=== PATIENT | male | born 1955 | race Caucasian/White ===

== ENCOUNTER → 2016-11-12 | Outpatient (CLI) | payer BC ==
--- NOTE | 2016-11-13 05:04 | REP ---
Clinical: Lateral pain. Technique: AP, lateral, bilateral oblique views of the left foot. Findings: Mild to moderate age-related degenerative changes involve the interphalangeal joints with subchondral sclerosis, joint space narrowing, and scattered marginal spurring. Mild to moderate age-related degenerative changes are also identified at the tarsometatarsal joints. No acute fracture dislocation. Surrounding soft tissues are unremarkable. Impression: Mild to moderate age-related degenerative changes. Signed by Margarito Godfrey MD 11/13/2016 04:56 A
== END ==
LOC: M WUC 08:31
PROVIDERS: ATTEND Physician Assistant
DX: M19.072 Primary osteoarthritis, left ankle and foot (principal)

== ENCOUNTER → 2018-10-28 | Outpatient (CLI) | payer BC ==
[2018-10-28 08:45] LABS: PROSTATIC SPECIFIC AG MONITOR 1.38 NG/ML (< 4.00)
== END ==
LOC: M LAB 07:42
PROVIDERS: ATTEND Family Medicine
DX: E29.1 Testicular hypofunction (principal)

== ENCOUNTER → 2019-04-20 | Outpatient (CLI) | payer BC ==
[2019-04-20 08:11] LABS: HEMATOCRIT 52.7 % (42.0-52.0); HEMOGLOBIN 17.3 g/dl (13.5-17.5); MEAN CORPUSCULAR HEMOGLOBIN 30.1 pg (27.0-33.0); MEAN CORPUSCULAR HGB CONC 32.8 g/dl (32.0-36.5); MEAN CORPUSCULAR VOLUME 91.7 fl (80.0-96.0); PLATELET COUNT, AUTOMATED 193 10^3/uL (150-450); RED BLOOD COUNT 5.75 10^6/uL (4.30-6.10); WHITE BLOOD COUNT 6.4 10^3/uL (4.0-10.0)
[2019-04-20 08:46] LABS: ALBUMIN 3.6 GM/DL (3.2-5.2); ALT/SGPT 24 U/L (12-78); BILIRUBIN,TOTAL 0.9 MG/DL (0.2-1.0); BLOOD UREA NITROGEN 18 MG/DL (7-18); CALCIUM LEVEL 8.8 MG/DL (8.8-10.2); CARBON DIOXIDE LEVEL 30 MEQ/L (21-32); CHLORIDE LEVEL 108 MEQ/L (98-107); CHOLESTEROL LEVEL 163 MG/DL (<200); CHOLESTEROL RISK RATIO 3.326 (<5); CREATININE FOR GFR 1.15 MG/DL (0.70-1.30); GLOMERULAR FILTRATION RATE > 60.0 (>49); GLUCOSE, FASTING 83 MG/DL (70-100); HDL CHOLESTEROL 49 MG/DL (>40); LDL CHOLESTEROL 98 MG/DL (<100); NON-HDL-C 114 MG/DL; POTASSIUM SERUM 4.5 MEQ/L (3.5-5.1); PROSTATIC SPECIFIC AG MONITOR 1.43 NG/ML (< 4.00); SODIUM LEVEL 142 MEQ/L (136-145); TOTAL PROTEIN 6.9 GM/DL (6.4-8.2); TRIGLYCERIDES LEVEL 78 MG/DL (<150)
[2019-04-20 10:09] LABS: TOTAL 25(OH) VITAMIN D 36.8 NG/ML (30.0-100.0)
[2019-04-20 10:11] LABS: HEMOGLOBIN A1c 5.3 %
== END ==
LOC: M LAB 07:16
PROVIDERS: ATTEND Family Medicine
DX: I10 Essential (primary) hypertension (principal); N40.0 Benign prostatic hyperplasia without lower urinary tract symptoms; E03.9 Hypothyroidism, unspecified

== ENCOUNTER → 2019-08-06 | Outpatient (REF) | payer BC ==
[2019-08-06 14:05] LABS: INFLUENZA A AMPLIFICATION POSITIVE (NEGATIVE); INFLUENZA B AMPLIFICATION NEGATIVE (NEGATIVE)
== END ==
LOC: M LAB REF 12:24
PROVIDERS: ATTEND Physician Assistant Medical
DX: R50.9 Fever, unspecified (principal)

== ENCOUNTER → 2019-10-15 | Outpatient (CLI) | payer BC, MEDICARE ==
[2019-10-15 07:26] LABS: HEMATOCRIT 46.7 % (42.0-52.0); HEMOGLOBIN 16.1 g/dl (13.5-17.5); MEAN CORPUSCULAR HEMOGLOBIN 30.8 pg (27.0-33.0); MEAN CORPUSCULAR HGB CONC 34.5 g/dl (32.0-36.5); MEAN CORPUSCULAR VOLUME 89.5 fl (80.0-96.0); PLATELET COUNT, AUTOMATED 182 10^3/uL (150-450); RED BLOOD COUNT 5.22 10^6/uL (4.30-6.10); WHITE BLOOD COUNT 6.7 10^3/uL (4.0-10.0)
[2019-10-15 07:50] LABS: ALBUMIN 3.7 GM/DL (3.2-5.2); ALT/SGPT 31 U/L (12-78); BILIRUBIN,TOTAL 0.5 MG/DL (0.2-1.0); BLOOD UREA NITROGEN 24 MG/DL (7-18); CALCIUM LEVEL 8.6 MG/DL (8.8-10.2); CARBON DIOXIDE LEVEL 30 MEQ/L (21-32); CHLORIDE LEVEL 107 MEQ/L (98-107); CHOLESTEROL LEVEL 171 MG/DL (<200); CHOLESTEROL RISK RATIO 4.275 (<5); CREATININE FOR GFR 1.12 MG/DL (0.70-1.30); GLOMERULAR FILTRATION RATE > 60.0 (>49); GLUCOSE, FASTING 85 MG/DL (70-100); HDL CHOLESTEROL 40 MG/DL (>40); LDL CHOLESTEROL 105 MG/DL (<100); NON-HDL-C 131 MG/DL; POTASSIUM SERUM 4.1 MEQ/L (3.5-5.1); PROSTATIC SPECIFIC AG MONITOR 1.05 NG/ML (< 4.00); SODIUM LEVEL 141 MEQ/L (136-145); TOTAL PROTEIN 7.3 GM/DL (6.4-8.2); TRIGLYCERIDES LEVEL 128 MG/DL (<150)
[2019-10-15 10:35] LABS: HEMOGLOBIN A1c 5.7 %
[2019-10-17 11:11] LABS: TESTOSTERONE 212 NG/DL (241-827)
== END ==
LOC: M LAB 06:45
PROVIDERS: ATTEND Family Medicine
DX: R53.83 Other fatigue (principal); I10 Essential (primary) hypertension; E03.9 Hypothyroidism, unspecified

== ENCOUNTER → 2020-04-28 | Outpatient (CLI) | payer BC, MEDICARE ==
[2020-04-28 09:18] LABS: HEMATOCRIT 48.5 % (42.0-52.0); HEMOGLOBIN 15.9 g/dl (13.5-17.5); MEAN CORPUSCULAR HEMOGLOBIN 29.4 pg (27.0-33.0); MEAN CORPUSCULAR HGB CONC 32.8 g/dl (32.0-36.5); MEAN CORPUSCULAR VOLUME 89.6 fl (80.0-96.0); PLATELET COUNT, AUTOMATED 184 10^3/uL (150-450); RED BLOOD COUNT 5.41 10^6/uL (4.30-6.10); WHITE BLOOD COUNT 7.2 10^3/uL (4.0-10.0)
[2020-04-28 09:38] LABS: ALBUMIN 3.5 GM/DL (3.2-5.2); ALT/SGPT 21 U/L (12-78); BILIRUBIN,TOTAL 0.8 MG/DL (0.2-1.0); BLOOD UREA NITROGEN 18 MG/DL (7-18); CALCIUM LEVEL 8.5 MG/DL (8.8-10.2); CARBON DIOXIDE LEVEL 30 MEQ/L (21-32); CHLORIDE LEVEL 108 MEQ/L (98-107); CHOLESTEROL LEVEL 155 MG/DL (<200); CHOLESTEROL RISK RATIO 3.444 (<5); CREATININE FOR GFR 1.22 MG/DL (0.70-1.30); GLOMERULAR FILTRATION RATE > 60.0 (>49); GLUCOSE, FASTING 92 MG/DL (70-100); HDL CHOLESTEROL 45 MG/DL (>40); LDL CHOLESTEROL 91 MG/DL (<100); NON-HDL-C 110 MG/DL; POTASSIUM SERUM 4.1 MEQ/L (3.5-5.1); SODIUM LEVEL 142 MEQ/L (136-145); TOTAL PROTEIN 6.9 GM/DL (6.4-8.2); TRIGLYCERIDES LEVEL 97 MG/DL (<150)
[2020-04-28 10:33] LABS: CHLAMYDIA DNA AMPLIFICATION NEGATIVE (NEGATIVE); GC DNA AMPLIFICATION NEGATIVE (NEGATIVE)
[2020-04-30 10:55] LABS: TESTOSTERONE 524 NG/DL (241-827)
[2020-04-30 11:35] LABS: HIV 1&2 SCREEN CENTAUR NEGATIVE (NEGATIVE)
== END ==
LOC: M LAB 08:27
PROVIDERS: ATTEND Family Medicine
DX: D64.9 Anemia, unspecified (principal); R53.83 Other fatigue; E03.9 Hypothyroidism, unspecified

== ENCOUNTER → 2020-10-29 | Outpatient (REF) | payer BC, MEDICARE | LOC: M LAB REF 11:47 | PROVIDERS: ATTEND Physician Assistant | DX: J02.9 Acute pharyngitis, unspecified (principal) ==

== ENCOUNTER → 2020-11-03 | Outpatient (CLI) | payer BC, MEDICARE ==
[2020-11-03 08:39] LABS: HEMOGLOBIN 15.4 g/dl (13.5-17.5); MEAN CORPUSCULAR HEMOGLOBIN 30.4 pg (27.0-33.0); MEAN CORPUSCULAR HGB CONC 33.5 g/dl (32.0-36.5); MEAN CORPUSCULAR VOLUME 90.7 fl (80.0-96.0); PLATELET COUNT, AUTOMATED 230 10^3/uL (150-450); RED BLOOD COUNT 5.07 10^6/uL (4.30-6.10); WHITE BLOOD COUNT 9.4 10^3/uL (4.0-10.0)
[2020-11-03 09:10] LABS: ALBUMIN 3.6 GM/DL (3.2-5.2); ALT/SGPT 28 U/L (12-78); BILIRUBIN,TOTAL 0.4 MG/DL (0.2-1.0); BLOOD UREA NITROGEN 18 MG/DL (7-18); CALCIUM LEVEL 8.8 MG/DL (8.8-10.2); CARBON DIOXIDE LEVEL 31 MEQ/L (21-32); CHLORIDE LEVEL 107 MEQ/L (98-107); CHOLESTEROL LEVEL 150 MG/DL (<200); CREATININE FOR GFR 0.96 MG/DL (0.70-1.30); GLOMERULAR FILTRATION RATE > 60.0 (>49); GLUCOSE, FASTING 88 MG/DL (70-100); HDL CHOLESTEROL 50 MG/DL (>40); LDL CHOLESTEROL 89 MG/DL (<100); NON-HDL-C 100 MG/DL; POTASSIUM SERUM 4.2 MEQ/L (3.5-5.1); PROSTATIC SPECIFIC AG MONITOR 1.24 NG/ML (< 4.00); SODIUM LEVEL 141 MEQ/L (136-145); THYROID STIMULATING HORMONE 0.905 uIU/ML (0.358-3.740); TRIGLYCERIDES LEVEL 55 MG/DL (<150)
[2020-11-03 09:57] LABS: HEMOGLOBIN A1c 5.1 %
[2020-11-05 12:15] LABS: TESTOSTERONE 460 NG/DL (241-827)
== END ==
LOC: M LAB 08:17
PROVIDERS: ATTEND Family Medicine
DX: I10 Essential (primary) hypertension (principal); E03.9 Hypothyroidism, unspecified; R53.83 Other fatigue; Z79.899 Other long term (current) drug therapy

== ENCOUNTER → 2021-03-19 | Outpatient (CLI) | payer MEDICARE ==
--- NOTE | 2021-03-19 11:16 | REP ---
INDICATION: [place]. COMPARISON: 05/30/2016 TECHNIQUE: Five views FINDINGS: Since the last examination prominent marginal osteophytosis has developed on the left at L2-3 and increased slightly on the left at L4-5. Vertebral body height and alignment is again seen to be within normal limits. There is advanced disc space narrowing seen at L4-5 and L5-S1 increased from the prior exam. Degenerative facet joint changes are again seen bilaterally at every level and again particularly at L4-5 and L5-S1. IMPRESSION: Chronic changes as described above. <Electronically signed by Tommy Poe > 03/19/21 [id number]
--- NOTE | 2021-03-19 11:22 | REP ---
INDICATION: COPD. COMPARISON: Multiple the latest 01/17/2016 TECHNIQUE: PA and lateral FINDINGS: The superior mediastinal structures are midline. The cardiac silhouette is unremarkable in size, shape, and position. The diaphragmatic surfaces of the lungs are regular, and the costophrenic angles are clear. The pulmonary english are clear. The imaged osseous structures are intact. IMPRESSION: There is no acute cardiopulmonary disease. <Electronically signed by Tommy Poe > 03/19/21 [id number]
== END ==
LOC: M RAD 08:49
PROVIDERS: ATTEND Family Medicine
DX: J44.9 Chronic obstructive pulmonary disease, unspecified (principal); M54.30 Sciatica, unspecified side; M25.78 Osteophyte, vertebrae; M48.061 Spinal stenosis, lumbar region without neurogenic claudication; M48.07 Spinal stenosis, lumbosacral region; M46.96 Unspecified inflammatory spondylopathy, lumbar region; M46.97 Unspecified inflammatory spondylopathy, lumbosacral region

== ENCOUNTER → 2021-05-20 | Outpatient (CLI) | payer MEDICARE ==
[2021-05-20 09:36] LABS: HEMOGLOBIN 16.1 g/dl (13.5-17.5); MEAN CORPUSCULAR HEMOGLOBIN 29.8 pg (27.0-33.0); MEAN CORPUSCULAR HGB CONC 32.9 g/dl (32.0-36.5); MEAN CORPUSCULAR VOLUME 90.7 fl (80.0-96.0); PLATELET COUNT, AUTOMATED 206 10^3/uL (150-450); WHITE BLOOD COUNT 7.5 10^3/uL (4.0-10.0)
[2021-05-20 10:12] LABS: ALBUMIN 3.9 GM/DL (3.2-5.2); ALT/SGPT 27 U/L (12-78); BILIRUBIN,TOTAL 0.8 MG/DL (0.2-1.0); BLOOD UREA NITROGEN 19 MG/DL (7-18); CALCIUM LEVEL 9.1 MG/DL (8.8-10.2); CARBON DIOXIDE LEVEL 31 MEQ/L (21-32); CHLORIDE LEVEL 107 MEQ/L (98-107); CHOLESTEROL LEVEL 177 MG/DL (<200); CHOLESTEROL RISK RATIO 4.317 (<5); GLOMERULAR FILTRATION RATE > 60.0 (>49); GLUCOSE, FASTING 95 MG/DL (70-100); HDL CHOLESTEROL 41 MG/DL (>40); LDL CHOLESTEROL 109 MG/DL (<100); NON-HDL-C 136 MG/DL; POTASSIUM SERUM 4.2 MEQ/L (3.5-5.1); PROSTATIC SPECIFIC AG MONITOR 1.71 NG/ML (< 4.00); SODIUM LEVEL 142 MEQ/L (136-145); TOTAL PROTEIN 7.1 GM/DL (6.4-8.2); TRIGLYCERIDES LEVEL 137 MG/DL (<150)
[2021-05-20 10:18] LABS: TESTOSTERONE 580 NG/DL (241-827)
[2021-05-20 10:45] LABS: HEMOGLOBIN A1c 5.1 %
== END ==
LOC: M LAB 08:43
PROVIDERS: ATTEND Family Medicine
DX: R53.83 Other fatigue (principal); I10 Essential (primary) hypertension; E03.9 Hypothyroidism, unspecified; Z79.899 Other long term (current) drug therapy; R97.20 Elevated prostate specific antigen [PSA]

== ENCOUNTER → 2022-01-20 | Outpatient (CLI) | payer MEDICARE ==
[2022-01-20 08:07] LABS: HEMATOCRIT 45.4 % (42.0-52.0); HEMOGLOBIN 15.6 g/dl (13.5-17.5); MEAN CORPUSCULAR HEMOGLOBIN 30.2 pg (27.0-33.0); MEAN CORPUSCULAR HGB CONC 34.4 g/dl (32.0-36.5); PLATELET COUNT, AUTOMATED 184 10^3/uL (150-450); RED BLOOD COUNT 5.16 10^6/uL (4.30-6.10); WHITE BLOOD COUNT 6.5 10^3/uL (4.0-10.0)
[2022-01-20 08:43] LABS: ALBUMIN 3.8 GM/DL (3.2-5.2); ALT/SGPT 22 U/L (12-78); BILIRUBIN,TOTAL 0.8 MG/DL (0.2-1.0); BLOOD UREA NITROGEN 16 MG/DL (7-18); CALCIUM LEVEL 9.1 MG/DL (8.8-10.2); CARBON DIOXIDE LEVEL 27 MEQ/L (21-32); CHLORIDE LEVEL 107 MEQ/L (98-107); CHOLESTEROL LEVEL 176 MG/DL (<200); CREATININE FOR GFR 1.13 MG/DL (0.70-1.30); GLOMERULAR FILTRATION RATE > 60.0 (>49); GLUCOSE, FASTING 96 MG/DL (70-100); HDL CHOLESTEROL 40 MG/DL (>40); LDL CHOLESTEROL 110 MG/DL (<100); NON-HDL-C 136 MG/DL; POTASSIUM SERUM 3.9 MEQ/L (3.5-5.1); PROSTATIC SPECIFIC AG MONITOR 1.24 NG/ML (< 4.00); SODIUM LEVEL 138 MEQ/L (136-145); TRIGLYCERIDES LEVEL 129 MG/DL (<150)
[2022-01-20 09:14] LABS: HEMOGLOBIN A1c 5.3 %
[2022-01-20 10:14] LABS: TESTOSTERONE 502 NG/DL (241-827)
== END ==
LOC: M RAD 07:10
PROVIDERS: ATTEND Family Medicine
DX: R53.83 Other fatigue (principal); I10 Essential (primary) hypertension; E03.9 Hypothyroidism, unspecified; Z79.899 Other long term (current) drug therapy; R97.20 Elevated prostate specific antigen [PSA]

== ENCOUNTER → 2022-04-30 | Outpatient (CLI) | payer MEDICARE ==
[2022-04-30 07:30] LABS: HEMOGLOBIN 15.5 g/dl (13.5-17.5); MEAN CORPUSCULAR HEMOGLOBIN 29.9 pg (27.0-33.0); MEAN CORPUSCULAR VOLUME 90.7 fl (80.0-96.0); PLATELET COUNT, AUTOMATED 186 10^3/uL (150-450); RED BLOOD COUNT 5.18 10^6/uL (4.30-6.10); WHITE BLOOD COUNT 6.5 10^3/uL (4.0-10.0)
[2022-04-30 07:59] LABS: CHLORIDE LEVEL 105 MMOL/L (98-107); POTASSIUM SERUM 4.3 MMOL/L (3.5-5.1); SODIUM LEVEL 141 MMOL/L (136-145)
[2022-04-30 08:01] LABS: ALBUMIN 3.8 G/DL (3.2-5.2); CARBON DIOXIDE LEVEL 31 MMOL/L (20-31)
[2022-04-30 08:05] LABS: BLOOD UREA NITROGEN 20 MG/DL (9-23); CALCIUM LEVEL 8.7 MG/DL (8.3-10.6); GLUCOSE, FASTING 99 MG/DL (74-106); TRIGLYCERIDES LEVEL 104 MG/DL (<150)
[2022-04-30 08:06] LABS: ALKALINE PHOSPHATASE 66 U/L (46-116)
[2022-04-30 08:07] LABS: CHOLESTEROL LEVEL 133 MG/DL (<200); CHOLESTEROL RISK RATIO 3.86 (<5); CREATININE FOR GFR 1.04 MG/DL (0.70-1.30); GLOMERULAR FILTRATION RATE > 60.0 (>49); HDL CHOLESTEROL 34.4 MG/DL (>40); LDL CHOLESTEROL 77.8 MG/DL (<100); NON-HDL-C 99 MG/DL
[2022-04-30 08:08] LABS: ALT/SGPT 16 U/L (7.0-40); AST/SGOT 22 U/L (<34); BILIRUBIN,TOTAL 0.8 MG/DL (0.3-1.2); TOTAL PROTEIN 6.7 G/DL (5.7-8.2)
[2022-04-30 08:09] LABS: THYROID STIMULATING HORMONE 3.979 uIU/ML (0.55-4.78)
[2022-04-30 08:10] LABS: TESTOSTERONE 773 NG/DL (241-827); TOTAL 25(OH) VITAMIN D 67.5 NG/ML (20.0-100.0)
[2022-04-30 09:01] LABS: HEMOGLOBIN A1c 4.8 % (4.0-6.0)
== END ==
LOC: M LAB 07:06
PROVIDERS: ATTEND Family Medicine
DX: I10 Essential (primary) hypertension (principal); E03.9 Hypothyroidism, unspecified; R53.83 Other fatigue; Z79.899 Other long term (current) drug therapy
CPT/HCPCS: 36415; 80053; 80061; 82306; 83036; 84403; 84443; 85027; G0103

== ENCOUNTER 2023-05-01 13:34 | Inpatient (IN) | payer MEDICARE ==
[~2023-05-01] VITALS: Ht 182.9 cm; Wt 86.6 kg
[~2023-05-01 13:34] MED LIST: ACYC1TAB PO; HYDR-3713; IBUP80TA; NEBI5TAB PO; PRAV40TA2 PO; TADA5TAB PO
[2023-05-01] MEDS ORDERED: IPRATROPIUM 0.5MG/ALBUTEROL 2.5MG INH SOL UD 3ML (DUONEB) NEB ONE (16:20)
[2023-05-01 16:47] LABS: BASO % 0.2 % (0.0-1.0); EOS % 0.1 % (0.0-3.0); HEMATOCRIT 45.1 % (42.0-52.0); HEMOGLOBIN 14.9 g/dl (13.5-17.5); LYMPH # 0.7 10^3/uL (1.5-5.0); LYMPH % 3.7 % (24.0-44.0); MEAN CORPUSCULAR HEMOGLOBIN 29.5 pg (27.0-33.0); MEAN CORPUSCULAR VOLUME 89.3 fl (80.0-96.0); MONO # 0.4 10^3/uL (0.0-0.8); MONO % 1.9 % (2.0-8.0); NEUTROPHILS # 17.8 10^3/uL (1.5-8.5); NEUTROPHILS % 93.8 % (36.0-66.0); PLATELET COUNT, AUTOMATED 343 10^3/uL (150-450); RED BLOOD COUNT 5.05 10^6/uL (4.30-6.10)
[2023-05-01 16:53] LABS: VENOUS BASE EXCESS 2.6 (-2.0-2.0); VENOUS HCO3 30.4 MMOL/L (23.0-27.0); VENOUS O2 SATURATION 58.7 % (60.0-80.0); VENOUS PARTIAL PRESSURE CO2 59.8 mmHg (38.0-50.0); VENOUS PH 7.324 UNITS (7.330-7.430); VENOUS STANDARD HCO3 25.6 MMOL/L; VENOUS TOTAL CO2 32.2 MMOL/L (24.0-28.0)
[2023-05-01] MEDS ORDERED: cefTRIAXone SOD 1 GM in D5W MINI-BAG PLUS 50 ML IV ONE (17:05)
[2023-05-01] MEDS ORDERED: AZITHROMYCIN 250MG TABLET PO ONE (17:05)
[2023-05-01 17:18] LABS: ALBUMIN 3.4 G/DL (3.2-5.2); ALKALINE PHOSPHATASE 76 U/L (46-116); ALT/SGPT 11 U/L (7.0-40); AST/SGOT 16 U/L (<34); BILIRUBIN,DIRECT 0.5 MG/DL (<0.4); BILIRUBIN,TOTAL 1.2 MG/DL (0.3-1.2); BLOOD UREA NITROGEN 17 MG/DL (9-23); CALCIUM LEVEL 9.2 MG/DL (8.3-10.6); CARBON DIOXIDE LEVEL 29 MMOL/L (20-31); CHLORIDE LEVEL 101 MMOL/L (98-107); CREATININE FOR GFR 0.94 MG/DL (0.70-1.30); GLOMERULAR FILTRATION RATE > 60.0 (>49); GLUCOSE, FASTING 111 MG/DL (74-106); POTASSIUM SERUM 4.1 MMOL/L (3.5-5.1); SODIUM LEVEL 139 MMOL/L (136-145); TOTAL PROTEIN 7.4 G/DL (5.7-8.2)
[2023-05-01 17:21] LABS: THYROID STIMULATING HORMONE 0.676 uIU/ML (0.55-4.78)
[2023-05-01] MEDS ORDERED: NEBIVOLOL 5 MG TAB (BYSTOLIC) PO STA (17:36)
[2023-05-01] MEDS ORDERED: AZIT-12 (17:41)
[2023-05-01] MEDS ORDERED: HYDR5LIQ2 (17:41)
[2023-05-01] MEDS ORDERED: ACETAMINOPHEN TAB 650MG DOSE (2X325MG) PO PRN (17:55)
[2023-05-01] MEDS ORDERED: MAALOX 30 ML SUSP *UDC PO PRN (17:55)
[2023-05-01] MEDS ORDERED: NS 1,000 ML IV SCH (17:55)
[2023-05-01] MEDS ORDERED: MOM 30ML SUSPENSION UDC PO PRN (17:55)
[2023-05-01] MEDS ORDERED: IPRATROPIUM 0.5MG/ALBUTEROL 2.5MG INH SOL UD 3ML (DUONEB) NEB PRN (18:10)
[2023-05-01] MEDS ORDERED: HOME MED LIST COMPLETE! XX SCH (18:50)
[2023-05-01] MEDS: IPRATROPIUM 0.5MG/ALBUTEROL 2.5MG INH SOL UD 3ML (DUONEB) NEB SCH (20:48)
[2023-05-01] MEDS: DOCUSATE SODIUM 100MG CAPSULE PO SCH (21:12)
[2023-05-01] MEDS: guaiFENesin ER TABLET 600 MG TAB PO SCH (21:12)
[2023-05-01] MEDS: LevoFLOXacin IV 750 MG in IV 1 EA IV SCH (21:12)
[2023-05-01 23:00] VITALS: BP 140/79; TEMP 97.6; O2SAT 92
[2023-05-02] VITALS (7 sets, daily range): BP systolic 140–151; BP diastolic 76–81; TEMP 97.1–98.5; O2SAT 92–96
[2023-05-02] MEDS: IPRATROPIUM 0.5MG/ALBUTEROL 2.5MG INH SOL UD 3ML (DUONEB) NEB SCH ×4 (01:36→20:26)
[2023-05-02 05:51] LABS: BLOOD UREA NITROGEN 17 MG/DL (9-23); CALCIUM LEVEL 8.3 MG/DL (8.3-10.6); CARBON DIOXIDE LEVEL 26 MMOL/L (20-31); CHLORIDE LEVEL 107 MMOL/L (98-107); CREATININE FOR GFR 0.91 MG/DL (0.70-1.30); GLOMERULAR FILTRATION RATE > 60.0 (>49); GLUCOSE, FASTING 101 MG/DL (74-106); MAGNESIUM LEVEL 1.9 MG/DL (1.8-2.4); POTASSIUM SERUM 4.1 MMOL/L (3.5-5.1); SODIUM LEVEL 142 MMOL/L (136-145)
[2023-05-02 05:57] LABS: BASO % 0.2 % (0.0-1.0); EOS # 0.1 10^3/uL (0.0-0.5); EOS % 0.5 % (0.0-3.0); HEMATOCRIT 39.2 % (42.0-52.0); LYMPH # 1.1 10^3/uL (1.5-5.0); LYMPH % 9.9 % (24.0-44.0); MEAN CORPUSCULAR HEMOGLOBIN 29.3 pg (27.0-33.0); MEAN CORPUSCULAR HGB CONC 33.2 g/dl (32.0-36.5); MEAN CORPUSCULAR VOLUME 88.5 fl (80.0-96.0); MONO # 0.7 10^3/uL (0.0-0.8); NEUTROPHILS % 82.8 % (36.0-66.0); PLATELET COUNT, AUTOMATED 288 10^3/uL (150-450); RED BLOOD COUNT 4.43 10^6/uL (4.30-6.10); WHITE BLOOD COUNT 10.9 10^3/uL (4.0-10.0)
[2023-05-02] MEDS: ENOXAPARIN 40MG/0.4ML SYRINGE (J1650 PER 10MG) SC SCH (09:00)
[2023-05-02] MEDS: DOCUSATE SODIUM 100MG CAPSULE PO SCH ×2 (09:00→20:09)
[2023-05-02] MEDS: guaiFENesin ER TABLET 600 MG TAB PO SCH ×2 (09:00→20:09)
[2023-05-02] MEDS: NEBIVOLOL 5 MG TAB (BYSTOLIC) PO SCH (09:01)
[2023-05-02] MEDS: PRAVASTATIN 20 MG TAB PO SCH (09:01)
[2023-05-02] MEDS: predniSONE 20 MG TAB PO SCH (15:15)
[2023-05-02] MEDS: LevoFLOXacin IV 750 MG in IV 1 EA IV SCH (20:09)
[2023-05-03] VITALS: BP 128/73; TEMP 97.3; O2SAT 95
[2023-05-03] MEDS: IPRATROPIUM 0.5MG/ALBUTEROL 2.5MG INH SOL UD 3ML (DUONEB) NEB SCH ×4 (01:28→19:59)
[2023-05-03 04:00] VITALS: BP 140/66; TEMP 97.2; O2SAT 96
[2023-05-03 05:16] LABS: BASO % 0.1 % (0.0-1.0); EOS % 0.1 % (0.0-3.0); HEMATOCRIT 42.7 % (42.0-52.0); HEMOGLOBIN 14.1 g/dl (13.5-17.5); LYMPH # 0.8 10^3/uL (1.5-5.0); MEAN CORPUSCULAR HEMOGLOBIN 29.4 pg (27.0-33.0); MEAN CORPUSCULAR VOLUME 89.1 fl (80.0-96.0); MONO # 0.5 10^3/uL (0.0-0.8); MONO % 4.7 % (2.0-8.0); NEUTROPHILS # 8.3 10^3/uL (1.5-8.5); PLATELET COUNT, AUTOMATED 319 10^3/uL (150-450); RED BLOOD COUNT 4.79 10^6/uL (4.30-6.10); WHITE BLOOD COUNT 9.6 10^3/uL (4.0-10.0)
[2023-05-03 05:31] LABS: BLOOD UREA NITROGEN 19 MG/DL (9-23); CALCIUM LEVEL 8.6 MG/DL (8.3-10.6); CARBON DIOXIDE LEVEL 26 MMOL/L (20-31); CHLORIDE LEVEL 105 MMOL/L (98-107); CREATININE FOR GFR 0.94 MG/DL (0.70-1.30); GLOMERULAR FILTRATION RATE > 60.0 (>49); GLUCOSE, FASTING 112 MG/DL (74-106); MAGNESIUM LEVEL 2.1 MG/DL (1.8-2.4); POTASSIUM SERUM 4.7 MMOL/L (3.5-5.1); SODIUM LEVEL 140 MMOL/L (136-145)
[2023-05-03 08:03] VITALS: BP 149/74; TEMP 97.3; O2SAT 92
[2023-05-03] MEDS: ENOXAPARIN 40MG/0.4ML SYRINGE (J1650 PER 10MG) SC SCH (09:10)
[2023-05-03] MEDS: predniSONE 20 MG TAB PO SCH (09:10)
[2023-05-03] MEDS: PRAVASTATIN 20 MG TAB PO SCH (09:10)
[2023-05-03] MEDS: DOCUSATE SODIUM 100MG CAPSULE PO SCH ×2 (09:10→20:10)
[2023-05-03] MEDS: NEBIVOLOL 5 MG TAB (BYSTOLIC) PO SCH (09:10)
[2023-05-03] MEDS: guaiFENesin ER TABLET 600 MG TAB PO SCH ×2 (09:10→20:10)
[2023-05-03 12:00] VITALS: BP 142/84; TEMP 97.2; O2SAT 92
[2023-05-03 16:14] VITALS: BP 130/74; TEMP 97; O2SAT 90
[2023-05-03 20:01] VITALS: BP 137/66; TEMP 98.8; O2SAT 96; O2SAT 98
[2023-05-03] MEDS: LevoFLOXacin IV 750 MG in IV 1 EA IV SCH (20:09)
[2023-05-04 00:34] VITALS: BP 156/81; TEMP 99.6; O2SAT 98
[2023-05-04] MEDS: IPRATROPIUM 0.5MG/ALBUTEROL 2.5MG INH SOL UD 3ML (DUONEB) NEB SCH ×2 (00:34→07:34)
[2023-05-04 04:00] VITALS: BP 157/88; TEMP 98.6; O2SAT 93
[2023-05-04 04:38] LABS: BASO % 0.3 % (0.0-1.0); EOS # 0.1 10^3/uL (0.0-0.5); EOS % 0.6 % (0.0-3.0); HEMATOCRIT 43.3 % (42.0-52.0); HEMOGLOBIN 14.6 g/dl (13.5-17.5); LYMPH # 1.5 10^3/uL (1.5-5.0); LYMPH % 12.3 % (24.0-44.0); MEAN CORPUSCULAR HEMOGLOBIN 29.7 pg (27.0-33.0); MEAN CORPUSCULAR HGB CONC 33.7 g/dl (32.0-36.5); MEAN CORPUSCULAR VOLUME 88.2 fl (80.0-96.0); MONO # 0.7 10^3/uL (0.0-0.8); MONO % 6.1 % (2.0-8.0); NEUTROPHILS # 9.5 10^3/uL (1.5-8.5); NEUTROPHILS % 79.7 % (36.0-66.0); PLATELET COUNT, AUTOMATED 324 10^3/uL (150-450); RED BLOOD COUNT 4.91 10^6/uL (4.30-6.10); WHITE BLOOD COUNT 11.9 10^3/uL (4.0-10.0)
[2023-05-04 05:01] LABS: BLOOD UREA NITROGEN 21 MG/DL (9-23); CALCIUM LEVEL 8.8 MG/DL (8.3-10.6); CARBON DIOXIDE LEVEL 27 MMOL/L (20-31); CHLORIDE LEVEL 106 MMOL/L (98-107); CREATININE FOR GFR 0.92 MG/DL (0.70-1.30); GLOMERULAR FILTRATION RATE > 60.0 (>49); GLUCOSE, FASTING 99 MG/DL (74-106); MAGNESIUM LEVEL 2.1 MG/DL (1.8-2.4); POTASSIUM SERUM 4.1 MMOL/L (3.5-5.1); SODIUM LEVEL 141 MMOL/L (136-145)
[2023-05-04 07:29] VITALS: BP 148/83; TEMP 98; O2SAT 92
[2023-05-04 07:35] VITALS: O2SAT 96
[2023-05-04] MEDS: guaiFENesin ER TABLET 600 MG TAB PO SCH (08:38)
[2023-05-04] MEDS: DOCUSATE SODIUM 100MG CAPSULE PO SCH (08:38)
[2023-05-04] MEDS: predniSONE 20 MG TAB PO SCH (08:38)
[2023-05-04 08:39] VITALS: BP 148/83
[2023-05-04] MEDS: PRAVASTATIN 20 MG TAB PO SCH (08:39)
[2023-05-04] MEDS: ENOXAPARIN 40MG/0.4ML SYRINGE (J1650 PER 10MG) SC SCH (08:39)
[2023-05-04] MEDS: NEBIVOLOL 5 MG TAB (BYSTOLIC) PO SCH (08:39)
[2023-05-04] MEDS ORDERED: PRED10TA2 PO (12:31)
[2023-05-04] MEDS ORDERED: LEVO1TAB40 PO (12:31)
[2023-05-04] MEDS ORDERED: MUCI600T31 PO (12:31)
[2023-05-04 16:08] LABS: MYCOPLASMA PNEUMONIAE IgG 354 U/mL (0-99); MYCOPLASMA PNEUMONIAE IgM <770 U/mL (0-769)
[2023-05-04] MEDS ORDERED: LevoFLOXacin 750 MG TABLET PO SCH (21:00)
== END 2023-05-04 14:02 | disposition home or self-care (01) | DRG 195 ==
LOC: M ED 13:34 → M ED INP 17:52 → M ICU 22:35
PROVIDERS: ADMIT Internal Medicine; ATTEND Internal Medicine
PROC: B246ZZ4 Ultrasonography of Right and Left Heart, Transesophageal (ICD-10-PCS; principal; 2023-05-03)
DX: J18.9 Pneumonia, unspecified organism (principal); I16.0 Hypertensive urgency; I10 Essential (primary) hypertension; D72.829 Elevated white blood cell count, unspecified; Z79.899 Other long term (current) drug therapy

== ENCOUNTER → 2023-05-15 | Outpatient (CLI) | payer MEDICARE ==
[~2023-05-15] MED LIST changes: +AZIT-12; +HYDR5LIQ2; +LEVO1TAB40 PO; +MUCI600T31 PO; +PRED10TA2 PO
== END ==
LOC: M RAD 07:44
PROVIDERS: ATTEND Family Medicine
DX: J18.9 Pneumonia, unspecified organism (principal)

== ENCOUNTER 2023-07-28 07:30 | Day surgery (SDC) | payer MEDICARE ==
[~2023-07-28] VITALS: Ht 182.9 cm; Wt 87.5 kg
[~2023-07-28 07:30] MED LIST changes: +SILD100T PO
[2023-07-28] MEDS: NS 1,000 ML IV ONE (07:42)
[2023-07-28 08:56] VITALS: BP 141/93; O2SAT 95
== END 2023-07-28 09:12 | disposition home or self-care (01) ==
LOC: M OPP 07:30
PROVIDERS: ATTEND Internal Medicine Gastroenterology
DX: Z12.11 Encounter for screening for malignant neoplasm of colon (principal); Z12.12 Encounter for screening for malignant neoplasm of rectum; D01.2 Carcinoma in situ of rectum; D12.4 Benign neoplasm of descending colon; D12.3 Benign neoplasm of transverse colon; D12.2 Benign neoplasm of ascending colon; K57.30 Diverticulosis of large intestine without perforation or abscess without bleeding; K64.8 Other hemorrhoids; I10 Essential (primary) hypertension; E78.00 Pure hypercholesterolemia, unspecified; Z79.899 Other long term (current) drug therapy

== ENCOUNTER 2023-11-11 19:40 | Emergency (ER) | payer MEDICARE ==
[~2023-11-11] VITALS: Ht 182.9 cm; Wt 93.7 kg
[2023-11-11 19:41] VITALS: BP 157/71; TEMP 97.7; O2SAT 98
== END 2023-11-11 19:55 | disposition left against medical advice (07) ==
LOC: M ED 19:40
DX: Z53.21 Procedure and treatment not carried out due to patient leaving prior to being seen by health care provider (principal)

== ENCOUNTER → 2023-12-23 | Outpatient (CLI) | payer MEDICARE ==
[2023-12-23 07:16] LABS: HEMATOCRIT 48.9 % (42.0-52.0); HEMOGLOBIN 16.5 g/dl (13.5-17.5); MEAN CORPUSCULAR HEMOGLOBIN 30.5 pg (27.0-33.0); MEAN CORPUSCULAR HGB CONC 33.7 g/dl (32.0-36.5); MEAN CORPUSCULAR VOLUME 90.4 fl (80.0-96.0); PLATELET COUNT, AUTOMATED 194 10^3/uL (150-450); RED BLOOD COUNT 5.41 10^6/uL (4.30-6.10); WHITE BLOOD COUNT 6.8 10^3/uL (4.0-10.0)
[2023-12-23 07:44] LABS: PSA SCREENING 1.01 NG/ML (< 4.00)
== END ==
LOC: M LAB 06:54
PROVIDERS: ATTEND Physician Assistant
DX: E29.1 Testicular hypofunction (principal); Z12.5 Encounter for screening for malignant neoplasm of prostate
CPT/HCPCS: 36415; 84403; 85027; G0103

== ENCOUNTER 2024-01-12 07:44 | Day surgery (SDC) | payer MEDICARE ==
[~2024-01-12] VITALS: Ht 182.9 cm; Wt 90.7 kg
[~2024-01-12 07:44] MED LIST changes: +HYDR12CA PO; +NS 1,000 ML IV ONE
[2024-01-12] MEDS ORDERED: TEST1GEL8 TD (08:08)
[2024-01-12] MEDS ORDERED: METO1TAB7 PO (08:08)
[2024-01-12] MEDS ORDERED: LIDOCAINE 2% 100MG/5ML SDV (FOR ANES.) As Ordered ONE (09:40)
[2024-01-12] MEDS ORDERED: fentaNYL 100 MCG/2 ML INJECTION As Ordered ONE (09:40)
[2024-01-12] MEDS ORDERED: propofoL 500 MG/50 ML VIAL As Ordered ONE (09:40)
[2024-01-12 10:16] VITALS: TEMP 97
[2024-01-12 10:37] VITALS: BP 126/74; O2SAT 95
== END 2024-01-12 10:45 | disposition home or self-care (01) ==
LOC: M OPP 07:44
PROVIDERS: ATTEND Internal Medicine Gastroenterology
DX: Z86.010 Personal history of colon polyps (principal); D12.4 Benign neoplasm of descending colon; K63.5 Polyp of colon; K64.8 Other hemorrhoids; K57.30 Diverticulosis of large intestine without perforation or abscess without bleeding; K29.70 Gastritis, unspecified, without bleeding; K20.80 Other esophagitis without bleeding; R12 Heartburn; Z79.02 Long term (current) use of antithrombotics/antiplatelets; Z79.899 Other long term (current) drug therapy
CPT/HCPCS: 43239; 45381; 45385; 88305; J3010

== ENCOUNTER → 2024-05-16 | Outpatient (CLI) | payer MEDICARE ==
[~2024-05-16] MED LIST changes: +METO1TAB7 PO; -NEBI5TAB PO; +NEBI5TAB2 PO; -NS 1,000 ML IV ONE; -TADA5TAB PO; +TADA5TAB94 PO; +TEST1GEL8 TD
[2024-05-16 14:32] LABS: BASO # 0.1 10^3/uL (0.0-0.2); BASO % 0.6 % (0.0-1.0); EOS # 0.2 10^3/uL (0.0-0.5); EOS % 2.7 % (0.0-3.0); HEMATOCRIT 46.1 % (42.0-52.0); HEMOGLOBIN 15.8 g/dl (13.5-17.5); LYMPH # 1.7 10^3/uL (1.5-5.0); LYMPH % 21.5 % (24.0-44.0); MEAN CORPUSCULAR HEMOGLOBIN 30.2 pg (27.0-33.0); MEAN CORPUSCULAR HGB CONC 34.3 g/dl (32.0-36.5); MEAN CORPUSCULAR VOLUME 88.1 fl (80.0-96.0); MONO # 0.9 10^3/uL (0.0-0.8); MONO % 10.6 % (2.0-8.0); NEUTROPHILS # 5.1 10^3/uL (1.5-8.5); NEUTROPHILS % 63.9 % (36.0-66.0); PLATELET COUNT, AUTOMATED 210 10^3/uL (150-450); RED BLOOD COUNT 5.23 10^6/uL (4.30-6.10)
[2024-05-16 14:41] LABS: ERYTHROCYTE SEDIMENTATION RATE 11 mm/hr (0-20)
== END ==
LOC: M LAB 13:58
PROVIDERS: ATTEND Optometrist
DX: G45.3 Amaurosis fugax (principal)

== ENCOUNTER → 2024-07-14 | Outpatient (CLI) | payer MEDICARE ==
[2024-07-14 07:57] LABS: BASO # 0.1 10^3/uL (0.0-0.2); BASO % 0.7 % (0.0-1.0); EOS # 0.2 10^3/uL (0.0-0.5); EOS % 2.9 % (0.0-3.0); HEMATOCRIT 48.5 % (42.0-52.0); HEMOGLOBIN 16.4 g/dl (13.5-17.5); LYMPH # 1.4 10^3/uL (1.5-5.0); LYMPH % 20.1 % (24.0-44.0); MEAN CORPUSCULAR HEMOGLOBIN 30.6 pg (27.0-33.0); MEAN CORPUSCULAR HGB CONC 33.8 g/dl (32.0-36.5); MEAN CORPUSCULAR VOLUME 90.5 fl (80.0-96.0); MONO # 0.7 10^3/uL (0.0-0.8); MONO % 10.1 % (2.0-8.0); NEUTROPHILS # 4.5 10^3/uL (1.5-8.5); NEUTROPHILS % 65.8 % (36.0-66.0); PLATELET COUNT, AUTOMATED 192 10^3/uL (150-450); RED BLOOD COUNT 5.36 10^6/uL (4.30-6.10); WHITE BLOOD COUNT 6.8 10^3/uL (4.0-10.0)
[2024-07-14 08:31] LABS: ALBUMIN 3.7 G/DL (3.2-5.2); ALKALINE PHOSPHATASE 71 U/L (40-129); ALT/SGPT 15 U/L (7.0-40); AST/SGOT 16 U/L (<34); BILIRUBIN,TOTAL 0.9 MG/DL (0.3-1.2); BLOOD UREA NITROGEN 21 MG/DL (9-23); CALCIUM LEVEL 9.1 MG/DL (8.3-10.6); CARBON DIOXIDE LEVEL 31 MMOL/L (20-31); CHLORIDE LEVEL 108 MMOL/L (98-107); CHOLESTEROL LEVEL 145 MG/DL (<200); CHOLESTEROL RISK RATIO 3.97 (<5); CREATININE FOR GFR 1.13 MG/DL (0.70-1.30); GLOMERULAR FILTRATION RATE > 60.0 (>42); GLUCOSE, FASTING 99 MG/DL (74-106); HDL CHOLESTEROL 36.5 MG/DL (>40); LDL CHOLESTEROL 88.9 MG/DL (<100); NON-HDL-C 108.5 MG/DL; POTASSIUM SERUM 4.3 MMOL/L (3.5-5.1); SODIUM LEVEL 145 MMOL/L (136-145); TRIGLYCERIDES LEVEL 98 MG/DL (<150)
[2024-07-14 09:51] LABS: FREE T4 1.04 NG/DL (0.89-1.76); TOTAL 25(OH) VITAMIN D 32.2 NG/ML (20.0-100.0)
== END ==
LOC: M LAB 07:25
PROVIDERS: ATTEND Nurse Practitioner Adult Health
DX: E78.5 Hyperlipidemia, unspecified (principal); I10 Essential (primary) hypertension; N52.9 Male erectile dysfunction, unspecified; R53.83 Other fatigue; Z79.899 Other long term (current) drug therapy

== ENCOUNTER → 2024-07-14 | Outpatient (CLI) | payer MEDICARE ==
[2024-07-14 07:58] LABS: HEMOGLOBIN 16.3 g/dl (13.5-17.5); MEAN CORPUSCULAR HEMOGLOBIN 30.8 pg (27.0-33.0); MEAN CORPUSCULAR VOLUME 90.7 fl (80.0-96.0); PLATELET COUNT, AUTOMATED 187 10^3/uL (150-450); RED BLOOD COUNT 5.29 10^6/uL (4.30-6.10); WHITE BLOOD COUNT 7.2 10^3/uL (4.0-10.0)
== END ==
LOC: M LAB 07:27
PROVIDERS: ATTEND Physician Assistant
DX: E29.1 Testicular hypofunction (principal)

== ENCOUNTER → 2024-08-11 | Outpatient (CLI) | payer MEDICARE | LOC: M RAD 10:39 | DX: F17.211 Nicotine dependence, cigarettes, in remission (principal) ==

== ENCOUNTER → 2025-01-10 | Outpatient (CLI) | payer MEDICARE ==
[~2025-01-10] MED LIST changes: +ACYC-438 PO; -ACYC1TAB PO; +HYDR12.510 PO; -HYDR12CA PO; -PRAV40TA2 PO; +PRAV40TA85 PO; +TADA5TAB2 PO; -TADA5TAB94 PO
[2025-01-10 16:03] LABS: PLATELET COUNT, AUTOMATED 209 10^3/uL (150-450)
[2025-01-10 16:33] LABS: PSA SCREENING 1.07 NG/ML (< 4.00)
[2025-01-10 16:38] LABS: TESTOSTERONE 784.0 NG/DL (241-827)
== END ==
LOC: M PLALAB 14:08
PROVIDERS: ATTEND Physician Assistant
DX: E29.1 Testicular hypofunction (principal); Z12.5 Encounter for screening for malignant neoplasm of prostate
CPT/HCPCS: 36415; 84403; 85027; G0103